=== PATIENT | male | born 1945 | race Caucasian/White ===

== ENCOUNTER → 2018-03-24 | Outpatient (CLI) | payer OTHER ==
[~2018-03-24] VITALS: Ht 165.1 cm; Wt 86.2 kg
[2018-03-24 12:47] VITALS: BP 102/53; BP 104/46; BP 104/56
--- NOTE | 2018-03-24 15:00 | NUR ---
Pt arrived to [facility] for infusion of one unit of blood. Was brought down by his in a w/c because of weakness. Seated self in recliner. History reviewed. T&S was done by lab. IV started in Right arm d/t diaysis shunt in left arm. Blood consent obtained and Blood started at 1300 and completed at 1441. IV was dc'd at 1445 and patient stated that he felt so much better that he wanted to walk out instead of using the w/c. Pt discharge instructions gone over with and patient and post blood transfusion reations sheet sent home with them. Pt tolerated blood transfusion well and had no s/sx of reaction.
== END ==
LOC: M.INFUS 10:51
DX: N17.9 Acute kidney failure, unspecified (principal); I10 Essential (primary) hypertension; R31.9 Hematuria, unspecified; R97.20 Elevated prostate specific antigen [PSA]; D64.9 Anemia, unspecified; R53.82 Chronic fatigue, unspecified; N40.1 Benign prostatic hyperplasia with lower urinary tract symptoms; N13.8 Other obstructive and reflux uropathy